=== PATIENT | female | born 1985 | race Caucasian/White ===

== ENCOUNTER → 2017-11-19 | Day surgery (SDC) | payer BC ==
[2017-11-16 16:08] LABS: BASOPHILS % 0.6 % (0.0-1.0); EOSINOPHILS # (AUTO) 0.1 (0.0-0.4); EOSINOPHILS % 1.7 % (0.0-6.0); HEMATOCRIT 39.8 % (34.2-44.1); HEMOGLOBIN 12.5 g/dL (12.0-16.0); LYMPHOCYTES # (AUTO) 2.7 (1.0-3.2); LYMPHOCYTES % 37.2 % (18.0-39.1); MEAN CORPUSCULAR HEMOGLOBIN 26.9 pg (28-32); MEAN CORPUSCULAR HGB CONC 31.4 g/dL (31-35); MEAN CORPUSCULAR VOLUME 85.8 fL (81-99); MONOCYTES # (AUTO) 0.5 (0.2-0.8); MONOCYTES % 6.5 % (4.4-11.3); NEUTROPHILS # (AUTO) 3.9 (2.1-6.9); NEUTROPHILS % 53.7 % (38.7-80.0); PLATELET COUNT 320 x10e3/uL (140-360); RED BLOOD COUNT 4.64 x10e6/uL (3.6-5.1); RED CELL DISTRIBUTION WIDTH 17.6 % (11.7-14.4)
[~2017-11-19] MED LIST: ACETAMINOPHEN 1000 MG/100 ML IV ONE; DEXAMETHASONE SOD PHOS INJ 4 MG/ML VIAL ONE; FENTANYL CITRATE/PF 100MCG/2 ML INJ ONE; KETOROLAC TROMETHAMINE 30 MG/ML VIAL ONE; LIDOCAINE HCL 2% LOCAL INJ 5 ML SDV VIAL INJ ONE; MIDAZOLAM HCL 2 MG/2 ML VIAL ONE; ONDANSETRON HCL INJ 2 MG/ML VIAL ONE; PROPOFOL IV EMULSION 10 MG/ML 20 ML VIAL ONE; SEVOFLURANE INHAL SOLN 250 ML PEN BTL ONE; SILVER NITRATE SWABS ONE; SODIUM CHLORIDE 0.9% 50ML 0 ML ONE; VASOPRESSIN INJ 20 UNIT/ML VIAL ONE
--- OUTSIDE RECORDS SUMMARY | 2017-11-19 10:40 | XMS REPORT | Clinical Summary ---
Author Author [facility] Organization [facility] Address Unknown Phone Unavailable Care Team Providers [facility] Coordinator Name Role Phone Asked, Pcp PCP Unavailable Allergies No Known Allergies Current Medications No known medications Active Problems Not on file Encounters Date Type Specialty Care Team Description 12/03/2016 Emergency Emergency Medicine Rashid Welch Vaginal bleeding between MD Suleiman periods (Primary Dx) after 11/18/2016 Social History Tobacco Use Types Packs/Day Years Used Date Current Every Day Smoker 0.3 Tobacco Cessation: Ready to Quit: Yes; Counseling Given: Yes Alcohol Use Drinks/Week oz/Week Comments No Sex Assigned at Date Recorded Not on file Last Filed Vital Signs Vital Sign Reading Time Taken Blood Pressure 94/59 12/04/2016 12:00 AM CDT Pulse 68 12/04/2016 12:00 AM CDT Temperature 37.2 C (98.9 F) 12/04/2016 12:00 AM CDT Respiratory Rate 18 12/04/2016 12:00 AM CDT Oxygen Saturation 99% 12/04/2016 12:00 AM CDT Inhaled Oxygen - - Concentration Weight - - Height - - Body Mass Index - - Plan of Treatment Not on file Results * CBC with platelet and differential (12/03/2016 9:19 PM) Component Value Ref Range WBC 9.5 4.2 - 11.0 k/uL RBC 3.97 (L) 4.04 - 5.86 m/uL HGB 11.8 11.5 - 15.3 g/dL HCT 35.9 34.0 - 45.0 % MCV 90.4 80.0 - 98.0 fL MCH 29.7 27.0 - 34.0 pg MCHC 32.9 31.5 - 36.5 g/dL RDW - SD 44.0 37.0 - 51.0 fL MPV 9.1 7.4 - 10.4 fL Platelet count 320 150 - 400 k/uL Nucleated RBC 0.00 /100 WBC Neutrophils 63.5 36.0 - 66.0 % Lymphocytes 28.5 24.0 - 44.0 % Monocytes 5.5 0.0 - 6.0 % Eosinophils 1.8 0.0 - 6.0 % Basophils 0.4 0.0 - 1.2 % Immature granulocytes 0.3 0.0 - 1.0 % Specimen Performing Laboratory Blood [facility] OF PATHOLOGY AND GENOMIC MEDICINE [address] [place] [address] * Urinalysis screen and microscopy, with reflex to culture (12/03/2016 8:10 PM) Component Value Ref Range Specimen site Clean catch Color, UA Yellow Appearance, UA Clear Specific gravity, UA 1.024 1.001 - 1.035 pH, UA 6.0 5.0 - 8.5 Protein, UA Negative Negative Glucose, UA Negative Negative Ketones, UA Trace (A) Negative Bilirubin, UA Negative Negative Blood, UA Negative Negative Nitrite, UA Negative Negative Urobilinogen, UA 2.0 (A) <2.0 Leukocyte esterase, UA Negative Negative Epithelial cells, UA Many /HPF WBC, UA <1 0 - 5 /HPF RBC, UA 4 0 - 5 /HPF Bacteria, UA Trace None seen Yeast, UA None seen Yeast with pseudohyphae, None seen UA Specimen Performing Laboratory Urine [facility] DEPART[facility] OF PATHOLOGY AND GENOMIC MEDICINE [address] [place] [address] * hCG qualitative, urine screen (12/03/2016 8:10 PM) Component Value Ref Range hCG qualitative, urine Negative Negative Comment: The manufacturers stated sensitivity of HcG test for serum is >/=10 mIU/ml and urine is >/=20mIU/ml. Specimen Performing Laboratory Urine [facility] DE[facility] OF PATHOLOGY AND GENOMIC MEDICINE [address] [place] [address] after 11/18/2016 Insurance Payer Benefit Subscriber ID Type Phone Address Plan / Group MEDICAID MEDICAID xxxxxxxxx Medicaid Work: [id number] [place] [id number] Home:
--- NOTE | 2017-11-19 16:08 | Operative Report ---
DATE OF PROCEDURE: November 19, 2017 PREOPERATIVE DIAGNOSES 1. Abnormal uterine bleeding. 2. Anemia. 3. Fibroid uterus. POSTOPERATIVE DIAGNOSES 1. Abnormal uterine bleeding. 2. Anemia. 3. Fibroid uterus. 4. Degenerative intracavitary myoma. PROCEDURES 1. Hysteroscopy. 2. Excision of intracavitary mass. 3. Endometrial curettage. ANESTHESIA: General with Dr. Soares. INDICATIONS FOR OPERATION: The patient is a 32-year-old, 3, para 3-0-0-3, with last menstrual period on August 16, 2017, on Depo-Lupron for fibroid uterus, who presented with abnormal uterine bleeding and anemia. She was found to have a 4 cm intracavitary fibroid. She was given Lupron to shrink it. She is now here for hysteroscopic myomectomy. Symptom pineda, she notices a ball of tissue coming out of her cervix when she has been on her periods. It seems to go back inside after her period is over. She desires future fertility. Therefore, requests hysteroscopic myomectomy at this time. FINDINGS AT SURGERY: The cervix was already dilated with soft mass noted per os. The mass was removed with rasping and twisting with ring forceps, easily removed and sent to pathology for definitive diagnosis. Frozen section came up degenerating hyalinized fibroid uterus after which hysteroscopy was attempted, but was limited due to the inability of the cervix to hold fluid. Both ostia were seen. Curettage was done after. The character of the cavity could not be well elucidated because of the lack of seal on the cervix. PROCEDURE: The patient was taken to the operating room and placed on the table in the supine position. General anesthesia was administered. The patient was then placed in the lithotomy position. The perineum was prepped and draped in the usual sterile manner. The bladder was drained by in and out catheterization. Pelvic exam revealed a 6-8-week size uterus in midposition with an open cervix and the mass palpable just inside the cervix. A weighted speculum was placed in the posterior vaginal wall. Then with the aid of a right-angled retractor, the anterior lip of the cervix was grasped with a ring forceps, and the mass was visualized. It was palpated and felt to go all the way to the fundus of the uterus. An attempt was made to place an Endoloop over the mass. One was partially successful and the 2nd one did not succeed tying down the base of the mass. However, the mass was grasped with multiple ring forceps. Once sufficient, pressure had been obtained on the mass. It was rotated and twisted and turned, and it came off easily bluntly with minimal if any bleeding occurring. This mass was then sent to pathology for frozen section, which came back hyalinized degenerating fibroid uterus. At this point, we performed a curettage at the base and the rest of the endometrium, which was generally smooth with no tissue being obtained. The minimal amount of tissue that we obtained was sent to pathology for permanent section. We then looked in with a hysteroscope although we were unable to obtain a seal to get good visualization. We visualized both ostia. They appeared to be within normal limits. The cavity could not be well elucidated secondary to the inability of the cavity to hold fluid completely. Therefore, the procedure was deemed terminated. All the instruments were removed from the vagina. Fluid deficit was 150 mL. There were no complications noted. Estimated blood loss was 25 mL. The patient tolerated the procedure well, and was transferred from the operating room to the recovery room in stable condition. Job#: [id number]
== END | disposition home or self-care (01) ==
LOC: OR 10:38
PROVIDERS: ATTEND Obstetrics & Gynecology
DX: D25.0 Submucous leiomyoma of uterus (principal); N93.9 Abnormal uterine and vaginal bleeding, unspecified; D64.9 Anemia, unspecified; Z01.812 Encounter for preprocedural laboratory examination; Z87.891 Personal history of nicotine dependence
CPT/HCPCS: 36415; 58145; 58558; 84702; 85025; 88305; 88331; J1100; J1885; J2001; J2250; J2405; 88307